=== PATIENT | male | born 1950 | race African-American/Black ===

== ENCOUNTER 2017-08-13 17:33 | Inpatient (IN) | payer MEDICARE, BC ==
[~2017-08-13] VITALS: Ht 177.8 cm; Wt 116.0 kg
--- NOTE | ~2017-08-13 | CR72 ---
[facility] A Service of [facility] & [facility] RADIOLOGY TEXT RESULTS PATIENT: MISSAEL AVILA LOCATION: [facility] 326-01 : 51 UNIT #: [id number] AGE: [address]: Radha Olivo MD SEX: M ORDER DR: [id number] [facility] [address] [facility] [facility]. [place], [place] [address] [id number] I MR#: [id number] Acc #: [id number] NAME: MISSAEL AVILA : 1950 SEX: M STUDY DATE/TIME: 08/16/2017 5:42 UNIT: [address] ROOM: [facility] STUDY DESCRIPTION: CR Chest Single View Portable Attending Physician: Radha Olivo M.D. Ordering Physician: Flor Hagen M.D. Primary Care Physician: Scott Oviedo M.D. MEDICAL IMAGING REPORT This report is preliminary unless electronic signature is present EXAM Portable chest 08/16/2017 HISTORY Shortness of air and chest pain for 4 days. Hemoptysis. COMPARISON 08/15. FINDINGS Today's portable view of the chest is compared with yesterday's study. There is minimal bibasilar atelectasis. The central pulmonary arteries are prominent. There has been no change. The heart size is normal. Dictated by... Esteban Hernandez M.D. THIS IS AN ELECTRONICALLY VERIFIED REPORT Esteban Hernandez M.D. at 08/16/2017 1:48 PM LEATHA/letty TD: 08/16/2017 10:49 JOB #: [id number] MEDICAL IMAGING REPORT Page 1 of 1 COPY
--- NOTE | ~2017-08-13 | HP ---
Unit #: [id number] #: [id number] Patient: MISSAEL AVILA [id number] [address] [address] [id number] I MR#: [id number] NAME: MISSAEL AVILA ROOM: 326 Age: 66 Sex: M Admission Date: 08/13/2017 : 1950 Attending Physician: Barb Dawson M.D. Primary Care Physician: Scott Oviedo M.D. HISTORY AND PHYSICAL CHIEF COMPLAINT Pneumonia with respiratory failure. HISTORY This pleasant 66-year-old male with COPD and chronic respiratory failure, HIV positive, AODM, is admitted for pneumonia. The patient was in his usual state of health until 3-4 days prior to admission when he developed malaise, deep cough productive of yellow sputum which then became more bloody. He has been more short of breath with pleuritic left greater than right chest pain. Yesterday developed fever, sweats, chills, some minor bronchospasm along with weakness. He presented to this emergency department tonight with a temperature of 103.1. CT scan performed shows a left lower lobe pneumonia, interstitial lung disease and advanced COPD. He was treated with Rocephin and Zithromax. The patient is HIV positive since 1999. Patient states that his last CD4 count was 894 3 months ago with a non-detectable viral load. PAST MEDICAL HISTORY 1. HIV positive since 1999 with CD4 count of 894 and undetectable viral load 3 months ago. 2. COPD with chronic respiratory failure on 2 L of oxygen. 3. Obstructive sleep apnea, on CPAP. 4. AODM. 5. Questionable history of congestive heart failure. 6. Essential hypertension. 7. Chronic low back pain. 8. Hyperlipidemia. 9. Left knee surgery. ALLERGIES No known drug allergies. HOME MEDICATIONS 1. Metformin 1000 mg b.i.d. 2. Yoon, 1 tablet daily. 3. Combivir, 1 tablet b.i.d. 4. Lisinopril 5 mg daily. 5. Procardia XL 30 mg daily. 6. Viramune, 1 tablet b.i.d. 7. Oxygen 2 L per nasal cannula. 8. Ventolin 2 puffs q.4 hours as needed. 9. Percocet 10/325 t.i.d. p.r.n. 10. Xanax 0.5 mg t.i.d. Unit #: [id number] #: [id number] Patient: MISSAEL AVILA FAMILY HISTORY Lung cancer, colon cancer, diabetes mellitus. SOCIAL HISTORY The patient lives with his and extended family. He smoked from age 17 until 1994. Does not drink alcohol. REVIEW OF SYSTEMS Notable for productive cough with hemoptysis, shortness of breath, wheezing, fever, sweats, chills, weakness, HIV, COPD, SEA, CHF, diabetes, hypertension, chronic low back pain, left knee surgery. All other systems were reviewed and are otherwise negative. PHYSICAL EXAMINATION GENERAL: Pleasant, obese, 66-year-old male, currently in no acute distress. VITAL SIGNS: Temperature 103.1, pulse 107, respirations 20, blood pressure 118/61. O2 saturation 90% on 2 L, currently is 94% on 5 L of oxygen. HEENT: Eyes PERRLA. Extraocular muscles are intact. Pharynx is benign. NECK: Supple without adenopathy or thyromegaly. CHEST: Actually fairly clear. CARDIAC: Normal S1 and S2. Soft systolic murmur. ABDOMEN: Bowel sounds are present. No hepatosplenomegaly, tenderness or masses. EXTREMITIES: Without edema. SKIN: Reveals scaly lesions which look like psoriasis. Patient states it is due to his HIV disease. NEUROLOGIC EXAM: The patient is awake, alert, oriented. Cranial nerves are intact. Equal strength throughout. DIAGNOSTIC STUDIES LABORATORY: Admission labs - hematocrit is 40.1, white blood count is 20.3, normal platelet count. SMA-12 - glucose is 115. Lactic acid is normal. Cardiac markers are negative. Influenzae serology negative. Urinalysis - positive glucose. IMAGING: Chest x-ray - new mild interstitial prominence of the lung bases. Atelectasis versus fibrosis versus edema. CTA of the chest was grossly negative for PE although was a suboptimal study. Left lower lobe pneumonia. Interstitial lung disease. COPD. Pulmonary artery hypertension. CARDIOVASCULAR: EKG - sinus tachycardia, rate 104 with first degree AV block. ASSESSMENT 1. Pneumonia. I am assuming that this is community-acquired pneumonia although patient does have HIV disease. He has a normal CD4 count and undetectable viral load recently. He presents with hemoptysis Unit #: [id number] #: [id number] Patient: MISSAEL AVILA and acute on chronic respiratory failure. 2. COPD/obstructive sleep apnea. 3. HIV positive, on HAART medications. 4. Hypertension. 5. Questionable history of congestive heart failure. 6. AODM. 7. Chronic pain. PLANS 1. Rocephin, Zithromax and 1 dose of vancomycin pending blood and sputum cultures. 2. Duo-Nebs and increase oxygen. 3. Pulmonary consultation. 4. Sliding scale insulin. 5. SCDs for DVT prophylaxis. 6. Further workup and consultants depending on above. 7. Will attempt to decreased Percocet while acutely ill. Dictated by Barb Dawson M.D. AML/df TD: 08/14/2017 05:31 JOB #: [id number] HISTORY AND PHYSICAL Page 1 of 1 X Barb Dawson MD X HISTORY AND PHYSICAL
--- NOTE | ~2017-08-13 | CT16 ---
[facility] A Service of [facility] & [facility] RADIOLOGY TEXT RESULTS PATIENT: MISSAEL AVILA LOCATION: [facility] 326-01 : 51 UNIT #: [id number] AGE: [address]: Radha Olivo MD SEX: M ORDER DR: [id number] [facility] [address] [facility] [place], [place] [address] [id number] I MR#: [id number] Acc #: [id number] NAME: MISSAEL AVILA : 1950 SEX: M STUDY DATE/TIME: 08/13/2017 21:07 UNIT: [facility] PCU ROOM: 326 STUDY DESCRIPTION: CT Angio Chest for PE Attending Physician: Radha Olivo M.D. Ordering Physician: Gaby Schmitt M.D. Primary Care Physician: Scott Oviedo M.D. MEDICAL IMAGING REPORT This report is preliminary unless electronic signature is present EXAM CT angiography of the of the chest with IV contrast, PE protocol COMPARISON September 13, 2004. INDICATION 66-year-old male with dyspnea and cough for [address] imaging of the chest was performed after IV administration of 100 mL of Isovue 370. This CT exam was performed with one or more of the following radiation dose reduction techniques: automatic exposure control, adjustment of mA and/or kV according to patient size, and iterative reconstruction. Unfortunately the first set of images was suboptimal for evaluation of pulmonary embolus. Therefore repeat CT imaging was performed through the chest after IV demonstration of another 100 mL views of Isovue-370. Coronal MIPs and sagittal reformats were constructed. FINDINGS Findings suggestive of DISH versus ankylosing spondylitis of the thoracic spine. No acute fractures or suspicious osseous lesions. There is top normal size of right hilar lymph node measuring up to 1 cm short axis. There are other prominent mediastinal lymph nodes, largest of which measures up to 8 mm short axis in a pretracheal location. These findings are likely reactive. There is dilatation of the main pulmonary artery suggesting pulmonary arterial hypertension. There is normal caliber of the thoracic aorta. There are multifocal calcifications of the thoracic aorta. There has been progression of emphysema since 2003, now with bulla formation in both upper lobes and moderate diffuse centrilobular emphysema. [facility] A Service of [facility] & [facility] RADIOLOGY TEXT RESULTS PATIENT: MISSAEL AVILA LOCATION: [facility] 326-01 : 51 UNIT #: [id number] AGE: [address]: Radha Olivo MD SEX: M ORDER DR: No evidence of pneumothorax. No significant pleural effusion. There is consolidation in the superior segment left lower lobe with internal foci of gas. These may reflect areas of emphysematous lung but developing pulmonary abscess cannot entirely be excluded. At very least this likely reflects pneumonia. There is plate-like attenuation in the right lung base most keeping with atelectasis. Mild honeycombing in the right lung base cannot be excluded. Findings may simply reflect emphysema. Similarly, honeycombing cannot be excluded in the posterior aspect of the left lower lobe. There is minimal atelectasis in the posterior basilar segment left lower lobe. A second contrast bolus was slightly more optimal for evaluation of pulmonary embolus but still suboptimal. There is no evidence of central or lobar pulmonary embolus but more peripheral embolus is difficult to exclude. Normal heart size, without pericardial effusion. Excretion of contrast is noted within the kidneys. Calcified granulomas in the liver. Calcification at the origins of the celiac, superior mesenteric and renal arteries. No evidence of significant associated stenosis. IMPRESSION 1. Findings most consistent with dense pneumonia in the superior segment left lower lobe. Imaging followup to ensure resolution is recommended. There are lucencies within this consolidation which may represent emphysematous lung but a developing abscess cannot entirely be excluded. There is no significant pleural effusion. 2. Significant progression of emphysema since 2003 which is now severe and there is questionable early honeycombing in both lung bases which would reflect interstitial lung disease. One could consider outpatient CT chest without IV contrast and with high-resolution images in prone positioning to exclude the possibility of pulmonary fibrosis. This should be performed after resolution of the patient's pneumonia. 3. Prominent mediastinal and right hilar lymph nodes, not pathologic enlarged by CT size criteria and likely reactive. 4. Dilatation of the main pulmonary artery suggesting pulmonary arterial hypertension. Despite two attempts with IV contrast, timing of contrast bolus is still suboptimal for evaluation of pulmonary embolus. I can exclude pulmonary embolus through the lobar pulmonary arteries but more peripheral pulmonary embolus is difficult to exclude given timing of contrast bolus. Clinical correlation recommended. 5. Findings suggestive of DISH or ankylosing spondylitis in the thoracic spine. 6. Arterial calcifications in the upper abdomen as described in the body of the report. Dictated by... ST[facility]. [facility] A Service of [facility] RADIOLOGY TEXT RESULTS PATIENT: MISSAEL AVILA LOCATION: [facility] 326-01 : 51 UNIT #: [id number] AGE: [address]: Radha Olivo MD SEX: M ORDER DR: Boni Nelson M.D. THIS IS AN ELECTRONICALLY VERIFIED REPORT Boni Nelson M.D. at 08/20/2017 9:38 AM May TD: 08/14/2017 11:17 JOB #: [id number] MEDICAL IMAGING REPORT Page 1 of 1 COPY
--- NOTE | ~2017-08-13 | DS ---
Unit #: [id number] #: [id number] Patient: MISSAEL AVILA [id number] [facility]. [place] [id number] [facility]. [place], [place] [address] [id number] I MR#: [id number] NAME: MISSAEL AVILA ROOM: 326 Age: 66 Sex: M Admission Date: 08/13/2017 : 1950 Discharge Date: 08/16/2017 Attending Physician: Radha Olivo M.D. Primary Care Physician: Scott Oviedo M.D. DISCHARGE SUMMARY DIAGNOSIS ON ADMISSION Acute respiratory failure, pneumonia. DIAGNOSES ON DISCHARGE 1. Community-acquired pneumonia. 2. Chronic obstructive pulmonary disease. 3. Chronic respiratory failure. 4. HIV positive. 5. Obstructive sleep apnea syndrome, on CPAP. 6. Type 2 diabetes mellitus. 7. Hypertension. 8. Chronic low back pain. 9. Hyperlipidemia. 10. Left lower lobe pneumonia. CONSULTATION Dr. Lujan in pulmonary consultation. LABS AND PROCEDURES DONE 1. Patient had a CT scan of chest done which revealed findings suggestive of dense pneumonia in left lower lobe. 2. Patient's blood culture did not reveal any growth so far. 3. Influenzae A and B screen was negative. 4. MRSA screen was also negative. 5. Sputum culture and sensitivity is pending. HOSPITAL COURSE 66-year-old male was admitted to the hospital with shortness of air. Details are as per admission H and P. Patient was treated for left lower lobe community-acquired pneumonia with IV antibiotics. Patient is feeling much better and is afebrile, and wants to go home. He was seen by Dr. Lujan in pulmonary consultation. Hypotension. Patient had an episode of hypotension. His blood pressure medications were discontinued. The blood pressure is much better now. I will restart his lisinopril 5 mg but I will discontinue her Procardia XL. Today patient is comfortable, is not in any distress. On physical examination vital signs reveal a temperature of 97.8, pulse is 83 per minute, respiratory rate is 18 per minute, blood pressure is 132/66. HEENT examination revealed no conjunctival congestion. HEART is regular rate and rhythm. S1, S2. ABDOMEN is soft, nontender. Bowel sounds are present in all four quadrants. Unit #: [id number] #: [id number] Patient: MISSAEL VAILA EXTREMITIES reveal trace pitting edema. RECOMMENDATIONS ON DISCHARGE Patient is stable. Activity as tolerated. Medications are: 1. Xanax 0.5 mg p.o. t.i.d. p.r.n. 2. Breo Ellipta 100/25 mcg, 1 inhalation daily. 3. Ventolin 2 puffs q.6 hours p.r.n. 4. Tylenol 650 mg p.o. q.6 hours p.r.n. 5. Glucophage 1000 mg p.o. b.i.d. 6. Yoon 180 mg p.o. daily p.r.n. 7. HIV med. Patient was advised to continue home HIV medications. 8. Lisinopril 5 mg p.o. daily. 9. Florastor 250 mg p.o. b.i.d. for 1 week. 10. Percocet 10 mg/325 mg p.o. q.4 hours p.r.n. 11. Nexium 20 mg p.o. daily. 12. Omnicef 300 mg p.o. b.i.d. Please make note that patient's Procardia XL was discontinued because of low blood pressure. FOLLOWUP 1. Patient is advised to follow up with primary care physician in one week and have a CBC and BMP done and follow up with Dr. Tanner and Dr. Lujan in 2 weeks. 2. Patient is advised to continue home oxygen. 3. Patient is advised to call primary care physician or go to ER if his condition changes. Dictated by... Gerardo Lea/kendell TD: 08/20/2017 09:57 JOB #: [id number] CC: Gerardo Vicente M.D. DISCHARGE SUMMARY Page 1 of 1 X Radha Olivo MD X DISCHARGE SUMMARY
--- NOTE | ~2017-08-13 | CR72 ---
[facility] A Service of [facility] & [facility] RADIOLOGY TEXT RESULTS PATIENT: MISSAEL AVILA LOCATION: [facility] 326- : 51 UNIT #: [id number] AGE: [address]: Radha Olivo MD SEX: M ORDER DR: [id number] [facility] [address] [facility]. [place], [place] [address] [id number] I MR#: [id number] Acc #: [id number] NAME: MISSAEL AVILA : 1950 SEX: M STUDY DATE/TIME: 08/13/2017 18:15 [facility] STUDY DESCRIPTION: CR Chest Single View Portable Attending Physician: Radha Olivo M.D. Ordering Physician: Gaby Schmitt M.D. Primary Care Physician: Scott Oviedo M.D. MEDICAL IMAGING REPORT This report is preliminary unless electronic signature is present EXAM Portable chest HISTORY Shortness of air and chest pain today. FINDINGS Mild interstitial prominence in the lung bases bilaterally is new compared to 05/02/2010. Considerations include interstitial edema or atelectasis or fibrosis. Stable mild central vascular congestion. Stable linear atelectasis or scarring in the lateral left base. The remainder of the chest is stable. Dictated by... Luis Gonzalez M.D. THIS IS AN ELECTRONICALLY VERIFIED REPORT Luis Gonzalez M.D. at 08/14/2017 11:45 PM ESTELA/ravinder TD: 08/14/2017 09:42 JOB #: [id number] MEDICAL IMAGING REPORT Page 1 of 1 COPY
--- NOTE | ~2017-08-13 | CR72 ---
[facility] A Service of [facility] RADIOLOGY TEXT RESULTS PATIENT: MISSAEL AVILA LOCATION: [facility] 326-01 : 51 UNIT #: [id number] AGE: [address]: Radha Olivo MD SEX: M ORDER DR: [id number] [facility] [address] [facility]. [place], [place] [address] [id number] I MR#: [id number] #: [id number] NAME: MISSAEL AVILA : 1950 SEX: M STUDY DATE/TIME: 08/15/2017 04:22 [facility] STUDY DESCRIPTION: CR Chest Single View Portable Attending Physician: Radha Olivo M.D. Ordering Physician: Flor Hagen M.D. Primary Care Physician: Scott Oviedo M.D. MEDICAL IMAGING REPORT This report is preliminary unless electronic signature is present EXAM Portable chest, 08/15 at 04:22 INDICATION Shortness of air, chest pain, hemoptysis for 3 days. History of HIV. FINDINGS AP portable chest is compared 08/13/2017. Cardiomegaly is stable, as is enlargement of both pulmonary [place]. There is emphysema and there are trace bilateral pleural effusions. There is mild infiltrate or atelectasis in the bases, but overall, aeration of the left base is improved. No pneumothorax. Dictated by... Rowdy Rodriguez Jr., M.D. THIS IS AN ELECTRONICALLY VERIFIED REPORT Rowdy Rodriguez Jr., M.D. at 08/16/2017 1:54 AM GHISLAINE/ravinder TD: 08/15/2017 12:43 JOB #: [id number] MEDICAL IMAGING REPORT Page 1 of 1 COPY
--- NOTE | ~2017-08-13 | EKG ---
PATIENT: MISSAEL AVILA UNIT #: [id number] Ventricular Rate: 104 BPM Atrial Rate: 104 BPM P-R Interval: 226 ms QRS Duration: 108 ms Q-T Interval: 340 ms QTC Calculation(Bezet): 447 ms P [place]: 84 degrees Calculated R [place]: 65 degrees Calculated T [place]: 40 degrees Diagnosis Line: Sinus tachycardia with 1st degree A-V block Diagnosis Line: Otherwise normal ECG Nonspecific ST abnormality Diagnosis Line: No previous ECGs available Diagnosis Line: Confirmed by LISETTE HERNANDEZ MD ([id number]) on 08/14/2017 Diagnosis Line: 7:36:55 PM INTERPRETING MD: MARY GRANGER
--- NOTE | ~2017-08-13 | CO ---
Unit #: [id number] #: [id number] Patient: MISSAEL OMER [id number] [place] [id number] [facility]. [place], [place] [address] [id number] I MR#: [id number] NAME: MISSAEL OMER ROOM: 326 Age: 66 Sex: M Admission Date: 08/13/2017 : 1950 Attending Physician: Radha Olivo M.D. Primary Care Physician: Scott Oviedo M.D. CONSULTATION REPORT HISTORY OF PRESENT ILLNESS Mr. Missael Omer is a pleasant 66-year-old gentleman. He has moved to the [facility] fairly recently. 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 He has a history of HIV since 1999. It has been currently treated with per patient normal CD4 count approximately 3 months ago and nondetectable viral load. The patient states approximately 3 to 4 days prior to admission, developed malaise and cough productive of yellow sputum which become a little more bloody. The patient has had short of breath, left-sided pleuritic chest pain developed fevers with chills and some bronchospasm. The patient was in the emergency room with temperature of 103.1. The patient had chest x-ray and CT scan, which showed left lower lobe pneumonia, a kind of some interstitial changes, advanced COPD, treated with Rocephin and Zithromax. We have been asked to see to follow along with community-acquired pneumonia in an immunocompetent patient. PAST MEDICAL HISTORY Significant for HIV positive since 1999 with a CD4 count of 894. COPD with chronic respiratory failure, 2 L of oxygen. Obstructive sleep apnea, on CPAP. The patient also has adult onset diabetes mellitus, hypertension, low back pain, hyperlipidemia, left knee surgery. ALLERGIES The patient has no known medical allergies. HOME MEDICATIONS Include metformin 1000 mg b.i.d., Yoon 1 tablet daily, Combivir 1 tablet b.i.d., lisinopril 5 mg daily, Procardia XL 30 mg daily, Viramune 1 tablet b.i.d., oxygen 2 L nasal cannula, Ventolin 2 puffs q.4 hours as needed, Percocet 10/325 t.i.d. p.r.n., Xanax 0.5 mg t.i.d. FAMILY HISTORY Positive for lung cancer, colon cancer, diabetes mellitus. SOCIAL HISTORY The patient lives with , extended family. Ex-smoker, quit in 1994. No history of alcohol. REVIEW OF SYSTEMS Significant for cough, hemoptysis, fever, chills. No nausea. No vomiting. Sweats, weakness, fatigue, anorexia. Otherwise, a 12-point review of systems is negative. PHYSICAL EXAMINATION Unit #: [id number] #: [id number] Patient: MISSAEL OMER VITAL SIGNS: T-current 98.3, pulse 82, respiratory rate 16, blood pressure 97/56, sat 91% on 4 L nasal cannula. In 1480 and out, not recorded. HEENT: Extraocular movements are intact. CHEST: Clear to auscultation bilaterally. CARDIOVASCULAR: Regular rate. No gallop. ABDOMEN: Soft, nontender, nondistended. EXTREMITIES: Shows no evidence of edema. DIAGNOSTIC STUDIES LABORATORY RESULTS: Sputum is pending. White count of 20.9, hemoglobin 11.7, platelets 141. Sodium 138, potassium 3.4, BUN and creatinine 13 and 0.8, calcium is 7.9. Flu swab negative. Urinalysis shows elevated glucose. BNP is 87. Lactic acid 1.5. IMAGING STUDIES: CT of the chest shows a dense pneumonia in superior segment of the left lower lobe, necrotizing pneumonia cannot be excluded. Emphysema progression since 2003. Prominent mediastinal right hilar lymph nodes. Dilatation of main pulmonary artery suggesting pulmonary hypertension. ASSESSMENT AND PLAN 1. Chronic obstructive pulmonary disease exacerbation. Continue current scheduled nebs. Continue the patient's home inhalers. Also would like to continue current steroids low-dose for very short period of time. In fact, I would like to see if we can do inhaled steroids. 2. Continue treatment for community-acquired pneumonia. We are going to do a methicillin-resistant Staphylococcus aureus nasal swab. We are also going to do a sputum culture. If imaging suggests development of a pleural effusion or any cavity lesion, the patient might require a bronchoscopic biopsy. I feel that these are most likely just regular community-acquired organisms which are causing this. Continue supplemental oxygen. Continue pulmonary toilet. Thank you very much for this consult and allowing us to participate in the care of this patient. Please page me at [phone] if you have any questions. Dictated by... BodGerardo Callejas TD: 08/15/2017 00:29 JOB #: [id number] CONSULTATION REPORT Page 1 of 1 X Fredi Hagen MD CONSULTATION REPORT
[~2017-08-13 17:33] MED LIST: ALBUTEROL17 GM INH; ALLEGRA PO; ALLEGRA180 MG; ALLEGRA180 MG PO; AUGMENTIN PO; BACITRACIN30 GM TOP; BACTRIM DS TABL1 TA1 PO; COMBIVIR TABLET1 TAB; COMBIVIR TABLET1 TAB PO; ELIMITE60 GM TOP; FLEXERIL PO; FLOVENT HFA12 GM INH; LIPITOR PO; LISINOPRIL PO; LISINOPRIL5 MG; LISINOPRIL5 MG PO; LORTAB 5/500 TA1 TA1 PO; METFORMIN; METFORMIN PO; NEXIUM PO; OXYGEN INH; PRILOSEC PO; PROCARDIA XL; PROCARDIA XL PO; PROCARDIA10 MG PO; SEREVENT D50 MCG/DIS PO; SKELAXIN PO; TYLOX 5/500 CAP1 CAP PO; VICODIN 5/500 T1 TAB PO; VIRAMUNE200 MG; VIRAMUNE200 MG PO; [UNRECOGNIZED DRUG - OTHER]
[2017-08-13 18:23] LABS: BASOPHIL% 0.2 % (0-2.5); HEMATOCRIT 40.1 % (38.0-50.0); HEMOGLOBIN 13.2 gm/dL (13.0-16.0); LYMPHOCYTE# 0.8 X10e3 (1.0-3.5); MEAN CELL VOLUME 92.7 FL (83-96); MEAN CORPUSCULAR HEMOGLOBIN 30.4 PG (28-34); MEAN CORPUSCULAR HGB CONC 32.8 g/dL (30-36); MEAN PLATELET VOLUME 9.9 FL (6.5-11.5); MONOCYTE# 2.3 X10e3 (0-1.0); MONOCYTE% 11.5 % (3.0-12.0); NEUTROPHIL# 17.1 X10e3 (1.5-7.1); NEUTROPHIL% 84.3 % (40-75); PLATELET COUNT 150 X10e3 (140-420); RED BLOOD COUNT 4.33 X10e (3.90-5.60); RED CELL DISTRIBUTION WIDTH 13.7 % (11.0-15.5); WHITE BLOOD COUNT 20.3 X10e3 (4.0-10.5)
[2017-08-13 18:25] LABS: DIFF IND YES
[2017-08-13 18:31] LABS: URINE SOURCE CLEAN CATCH
[2017-08-13 18:32] LABS: POC - CKMB 1.3 ng/mL (0.0-7.9); POC - TROPONIN <0.05 ng/mL (<=0.05)
[2017-08-13 18:33] LABS: INR 1.1; PARTIAL THROMBOPLASTIN TIME 30.1 SECONDS (23.5-31.3); PROTHROMBIN TIME (PATIENT) 11.4 SECONDS (10.0-11.7)
[2017-08-13 18:44] LABS: URINE APPEARANCE TURBID; URINE BILIRUBIN NEG (NEG); URINE BLOOD NEG (NEG); URINE COLOR YELLOW; URINE GLUCOSE >1000 MG/DL (NEG); URINE KETONE NEG (NEG); URINE LEUKOCYTE ESTERASE NEG (NEG); URINE NITRATE NEG (NEG); URINE PH 5.5 (5-8); URINE PROTEIN NEG (NEG); URINE SPECIFIC GRAVITY 1.026 (1.003-1.035); URINE UROBILINOGEN 0.2 MG/DL (NEG)
[2017-08-13 18:50] LABS: ALBUMIN SERUM 3.9 g/dL (3.5-5.0); BILIRUBIN, DIRECT 0.2 mg/dL (0.0-0.2); BILIRUBIN,INDIRECT 0.8 mg/dL (0.0-0.9); BUN/CREATININE RATIO 12.22; CALCIUM SERUM 8.4 mg/dL (8.4-10.2); CREATININE SERUM 0.9 mg/dL (0.6-1.4); GLOM FILT RATE Estimated 103.5 mL/min (>60); POTASSIUM 3.5 mmol/L (3.5-5.1); PROTEIN TOTAL SERUM 7.5 g/dL (6.0-8.3)
[2017-08-13 18:54] LABS: INFLUENZA A NEG (NEG); INFLUENZA B NEG (NEG)
[2017-08-13 18:54] LABS: CULTURE INDICATED? NO
[2017-08-13 19:04] LABS: ANISOCYTOSIS SL; PLATELET ESTIMATE NORMAL (NORMAL)
[2017-08-13] MEDS ORDERED: XANAX0.5 M1 PO (19:51)
[2017-08-13] MEDS ORDERED: PERCOCET10 PO (19:51)
[2017-08-13 20:13] LABS: POC - CKMB <1.0 ng/mL (0.0-7.9); POC - TROPONIN <0.05 ng/mL (<=0.05)
[2017-08-14] MEDS ORDERED: EPZICOM PO (00:37)
[2017-08-14] MEDS ORDERED: SEREVENT DISKU50 MCG PO (00:38)
[2017-08-14] MEDS ORDERED: BREO ELLIPTA 11 EACH INH (00:39)
[2017-08-14] MEDS ORDERED: NEXIUM20 MG PO (00:40)
[2017-08-14 04:48] LABS: BASOPHIL# 0.1 X10e3 (0-0.3); BASOPHIL% 0.3 % (0-2.5); EOSINOPHIL% 0.1 % (0.0-7.0); HEMATOCRIT 36.9 % (38.0-50.0); HEMOGLOBIN 11.7 gm/dL (13.0-16.0); LYMPHOCYTE# 1.9 X10e3 (1.0-3.5); MEAN CELL VOLUME 94.3 FL (83-96); MEAN CORPUSCULAR HEMOGLOBIN 29.8 PG (28-34); MEAN CORPUSCULAR HGB CONC 31.6 g/dL (30-36); MONOCYTE# 2.8 X10e3 (0-1.0); MONOCYTE% 13.5 % (3.0-12.0); NEUTROPHIL# 16.1 X10e3 (1.5-7.1); NEUTROPHIL% 77.1 % (40-75); PLATELET COUNT 141 X10e3 (140-420); RED BLOOD COUNT 3.91 X10e (3.90-5.60); RED CELL DISTRIBUTION WIDTH 13.6 % (11.0-15.5); WHITE BLOOD COUNT 20.9 X10e3 (4.0-10.5)
[2017-08-14 04:49] LABS: DIFF IND NO
[2017-08-14 05:20] LABS: BUN/CREATININE RATIO 16.25; CALCIUM SERUM 7.9 mg/dL (8.4-10.2); CREATININE SERUM 0.8 mg/dL (0.6-1.4); GLOM FILT RATE Estimated 108.7 mL/min (>60); POTASSIUM 3.4 mmol/L (3.5-5.1)
[2017-08-15 09:08] LABS: BASOPHIL% 0.1 % (0-2.5); EOSINOPHIL# 0.1 X10e3 (0-0.7); EOSINOPHIL% 0.8 % (0.0-7.0); HEMATOCRIT 35.6 % (38.0-50.0); HEMOGLOBIN 11.4 gm/dL (13.0-16.0); LYMPHOCYTE# 1.2 X10e3 (1.0-3.5); LYMPHOCYTE% 10.2 % (17.0-45.0); MEAN CELL VOLUME 94.1 FL (83-96); MEAN CORPUSCULAR HEMOGLOBIN 30.2 PG (28-34); MEAN CORPUSCULAR HGB CONC 32.1 g/dL (30-36); MEAN PLATELET VOLUME 9.7 FL (6.5-11.5); MONOCYTE# 1.2 X10e3 (0-1.0); MONOCYTE% 10.6 % (3.0-12.0); NEUTROPHIL% 78.3 % (40-75); PLATELET COUNT 132 X10e3 (140-420); RED BLOOD COUNT 3.78 X10e (3.90-5.60); RED CELL DISTRIBUTION WIDTH 13.5 % (11.0-15.5); WHITE BLOOD COUNT 11.5 X10e3 (4.0-10.5)
[2017-08-15 09:11] LABS: DIFF IND NO
[2017-08-15 09:40] LABS: BUN/CREATININE RATIO 12.85; CALCIUM SERUM 8.3 mg/dL (8.4-10.2); CREATININE SERUM 0.7 mg/dL (0.6-1.4); GLOM FILT RATE Estimated 114.8 mL/min (>60); POTASSIUM 3.8 mmol/L (3.5-5.1)
[2017-08-16] MEDS ORDERED: OMNICEF300 MG PO (14:58)
[2017-08-16] MEDS ORDERED: DIGESTIVE PROB250 MG PO (15:00)
== END 2017-08-16 15:34 | disposition home health service (06) | DRG 190 ==
LOC: CED 17:33 → CEDOF 23:00 → CED 23:14 → CEDOF 23:14 → C3A PCU 23:56 → CEDOF 23:56 → C3A PCU 08-14 07:47
PROVIDERS: Emergency Medicine; Internal Medicine
PROC: B32TYZZ Computerized Tomography (CT Scan) of Left Pulmonary Artery using Other Contrast (ICD-10-PCS; principal; 2017-08-13)
PROC: B32SYZZ Computerized Tomography (CT Scan) of Right Pulmonary Artery using Other Contrast (ICD-10-PCS; 2017-08-13)
PROC: 3E0234Z Introduction of Serum, Toxoid and Vaccine into Muscle, Percutaneous Approach (ICD-10-PCS; 2017-08-15)
DX: J44.0 Chronic obstructive pulmonary disease with (acute) lower respiratory infection (principal); J18.9 Pneumonia, unspecified organism; J96.20 Acute and chronic respiratory failure, unspecified whether with hypoxia or hypercapnia; I11.0 Hypertensive heart disease with heart failure; I95.9 Hypotension, unspecified; I50.9 Heart failure, unspecified; R04.2 Hemoptysis; J44.1 Chronic obstructive pulmonary disease with (acute) exacerbation; Z21 Asymptomatic human immunodeficiency virus [HIV] infection status; G47.33 Obstructive sleep apnea (adult) (pediatric); E11.9 Type 2 diabetes mellitus without complications; Z79.84 Long term (current) use of oral hypoglycemic drugs; G89.29 Other chronic pain; M54.9 Dorsalgia, unspecified; E78.5 Hyperlipidemia, unspecified; Z80.0 Family history of malignant neoplasm of digestive organs; Z80.1 Family history of malignant neoplasm of trachea, bronchus and lung; Z83.3 Family history of diabetes mellitus; Z23 Encounter for immunization
CPT/HCPCS: 36415; 71010; 71275; 80048; 80076; 81003; 82553; 82947; 83605; 83880; 84484; 85025; 85610; 85730; 87040; 87070; 87205; 87633; 87804; 90732; 93005; 94640; 94664; 94760; 96361; 96365; 99285; G0009; G0238; J0456; J0696; J1815; J3370; Q9967